=== PATIENT | male | born 1990 | race Two or more races ===

== ENCOUNTER → 2020-01-30 | Emergency (ER) | payer MEDICAID, OTHER ==
[~2020-01-30] VITALS: Ht 165.1 cm; Wt 65.8 kg
[~2020-01-30] MED LIST: EZ-GAS II GRANULES (RADIOLOGY USE) PO ONE; GASTROGRAFIN 120 ML SOL ONE; MORPHINE SULFATE 4 MG/ML SYR/VIAL IV ONE; ONDANSETRON HCL 4 MG/2 ML VIAL IV ONE; PIPERACILLIN-TAZOB 3.375GM 100 ML IV ONE; SODIUM CHLORIDE 0.9% 1,000 ML IV ONE
[2020-01-30 09:01] LABS: Basophils # (auto) 0 10 ^3/uL (0-0.2); Basophils % (auto) 0.2 % (0.0-2.0); Eosinophils # (auto) 0 10 ^3/uL (0-0.8); Hematocrit 52.6 % (41.0-53.0); Hemoglobin 17.6 g/dL (13.5-17.5); Lymphocytes # (auto) 1.6 10 ^3/uL (0.4-5.4); Lymphocytes % (auto) 13.9 % (10.0-50.0); Mean Corpuscular Hemoglobin 30.2 pg (28.0-32.0); Mean Corpuscular Hgb Conc. 33.4 g/dL (32.0-36.0); Mean Corpuscular Volume 90.3 fL (80.0-100.0); Monocytes # (auto) 0.5 10 ^3/uL (0-1.3); Monocytes % (auto) 4.2 % (0.0-12.0); Neutrophils # (auto) 9.6 10 ^3/uL (1.6-8.6); Neutrophils % (auto) 81.7 % (37.0-80.0); Nucleated Red Blood Cells % 0.2 %; Platelet Count (auto) 364 10^3/uL (140-450); Red Blood Cells 5.83 10^6/uL (4.5-5.90); Red Cell Distribution Width 13.7 % (11.8-14.3); White Blood Cell 11.8 10^3/uL (4.4-10.8)
[2020-01-30 09:17] LABS: Albumin 6.1 g/dL (3.4-5.0); Magnesium 3.3 mg/dL (1.6-2.6); Potassium 4.2 mmol/L (3.5-5.1)
[2020-01-30 09:21] LABS: BUN/Creatinine Ratio 8.8; Bilirubin, Total 0.7 mg/dL (0.2-1.0)
[2020-01-30 11:53] VITALS: BP 115/88
== END | disposition home or self-care (01) ==
LOC: ER 08:23
DX: J98.2 Interstitial emphysema (principal); E86.0 Dehydration; D72.829 Elevated white blood cell count, unspecified; R11.2 Nausea with vomiting, unspecified
CPT/HCPCS: 36415; 71045; 71250; 74176; 80053; 82150; 83690; 83735; 85025; 96361; 96365; 96375; 99285; J2270; J2405; J2543; J7030